=== PATIENT | female | born 1955 | race African-American/Black ===

== ENCOUNTER 2023-03-04 09:11 | Emergency (ER) | payer OTHER ==
[~2023-03-04] VITALS: Ht 162.6 cm; Wt 55.0 kg
[2023-03-04 09:16] VITALS: BP 179/92; PULSE 79; RESP 18; TEMP 98.2; O2SAT 99
== END 2023-03-04 10:05 | disposition home or self-care (01) ==
LOC: ER 09:56
DX: Z53.21 Procedure and treatment not carried out due to patient leaving prior to being seen by health care provider (principal)
CPT/HCPCS: 99281